=== PATIENT | female | born 1975 | race Two or more races ===

== ENCOUNTER 2021-12-18 14:28 | Emergency (ER) | payer MEDICAID, OTHER ==
[~2021-12-18] VITALS: Ht 160 cm; Wt 104.0 kg
[2021-12-18 17:13] VITALS: BP 150/80
[2021-12-18] MEDS ORDERED: KETOROLAC TROMETH 60MG/2ML VIAL IM ONE (19:00)
[2021-12-18] MEDS ORDERED: CYCL-837 PO ×2 (19:14→19:21)
[2021-12-18] MEDS ORDERED: IBUP800T26 PO (19:14)
[2021-12-18] MEDS ORDERED: NAP500T PO (19:21)
== END 2021-12-18 19:29 | disposition home or self-care (01) ==
LOC: EDBD 14:28 → ER 14:28
DX: M25.512 Pain in left shoulder (principal); M54.50 Low back pain, unspecified; Z79.1 Long term (current) use of non-steroidal anti-inflammatories (NSAID); Z79.899 Other long term (current) drug therapy; Z88.1 Allergy status to other antibiotic agents; V89.2XXA Person injured in unspecified motor-vehicle accident, traffic, initial encounter; Y93.89 Activity, other specified; Y92.89 Other specified places as the place of occurrence of the external cause; Y99.8 Other external cause status
CPT/HCPCS: 72100; 73030; 96372; 99284; J1885